=== PATIENT | male | born 2000 ===

== ENCOUNTER 2020-05-03 22:58 | Emergency (ER) | payer SELFPAY ==
[~2020-05-03] VITALS: Ht 188 cm; Wt 80.0 kg
[2020-05-03 23:02] VITALS: BP 151/87
--- NOTE | 2020-05-03 23:15 | NUR ---
not in lobby
--- NOTE | 2020-05-03 23:29 | NUR ---
not in lobby
--- NOTE | 2020-05-03 23:52 | NUR ---
NIL X3
== END 2020-05-03 23:54 | disposition left against medical advice (07) ==
LOC: ED 23:00
DX: S61.411A Laceration without foreign body of right hand, initial encounter (principal); Z53.21 Procedure and treatment not carried out due to patient leaving prior to being seen by health care provider; X58.XXXA Exposure to other specified factors, initial encounter; Y93.89 Activity, other specified; Y92.89 Other specified places as the place of occurrence of the external cause; Y99.8 Other external cause status